=== PATIENT | male | born 1975 | race Caucasian/White ===

== ENCOUNTER 2022-10-20 10:56 | Emergency (ER) | payer SELFPAY ==
[~2022-10-20] VITALS: Ht 175.3 cm; Wt 107.8 kg
[~2022-10-20 10:56] MED LIST: CYCL-1 PO; NAPR-1154 PO
[2022-10-20 11:59] VITALS: BP 132/89
== END 2022-10-20 12:55 | disposition left against medical advice (07) ==
LOC: ER 10:56
DX: T25.029A Burn of unspecified degree of unspecified foot, initial encounter (principal); Z53.21 Procedure and treatment not carried out due to patient leaving prior to being seen by health care provider; X08.8XXA Exposure to other specified smoke, fire and flames, initial encounter; Y93.89 Activity, other specified; Y92.89 Other specified places as the place of occurrence of the external cause; Y99.8 Other external cause status